=== PATIENT | female | born 1980 | race Caucasian/White ===

== ENCOUNTER 2022-07-27 07:56 | Day surgery (SDC) | payer BC, OTHER ==
[2022-07-26 17:03] LABS: Hematocrit 33.7 % (36.0-45.0); Lymphocytes % 36.8 % (15.3-44.8); MCV 82.2 fL (80-100); Specific Gravity 1.023 (1.005-1.030)
[2022-07-26 17:08] LABS: Potassium 3.3 mmol/L (3.5-5.1)
[2022-07-26 17:15] LABS: SARS-CoV-2 Antigen Rapid Res Negative (Negative)
[2022-07-27] MEDS ORDERED: FENTANYL CITR 100 MCG/2 ML ONE (08:06)
[2022-07-27] MEDS ORDERED: Ringers Lactate 1,000 ML IV ONE ×2 (08:06→10:41)
[2022-07-27] MEDS ORDERED: propofoL 200 MG/20 ML VIAL IV ONE (08:06)
[2022-07-27] MEDS ORDERED: ONDANSETRON 4 MG/2 ML VIAL ONE ×2 (08:06→10:44)
[2022-07-27] MEDS ORDERED: CEFAZOLIN 2 GM IN 0.9% NACL 2 GM/100 ML BAG ONE (08:06)
[2022-07-27] MEDS ORDERED: LIDOCAINE 2% MPF 5 ML VIAL ONE (08:06)
[2022-07-27] MEDS ORDERED: MIDAZOLAM HCL 2 MG/2 ML INJ ONE ×2 (08:06→08:48)
[2022-07-27] MEDS ORDERED: BUPIVACAINE 0.25% PF 30 ML VIAL ONE (08:15)
[2022-07-27] MEDS ORDERED: SCOPOLAMINE HYDROBROMIDE PATCH TD ONE (08:51)
[2022-07-27] MEDS ORDERED: ROCURONIUM 50 MG/5 ML VIAL IV ONE (09:15)
[2022-07-27] MEDS ORDERED: KETOROLAC 30 MG/ML INJ ONE (10:11)
[2022-07-27] MEDS ORDERED: SODIUM HYPOCHLORITE 0.25% 473 ML ONE (10:11)
[2022-07-27] MEDS ORDERED: NEOSTIGMINE 1 MG/ML -10 ML VIAL ONE (10:27)
[2022-07-27] MEDS ORDERED: GLYCOPYRROLATE 0.2 MG/ML SYR ONE (10:27)
[2022-07-27] MEDS: MEPERIDINE HCL 25 MG/ML SYR ONE ×2 (10:45→11:00)
--- NOTE | 2022-07-27 11:02 | P.OP ---
Preoperative diagnosis: Post Operative Wound infection / seroma / hematoma Postoperative diagnosis: Post Operative Wound infection / seroma / hematoma Primary procedure: Debridment of Necrotic abdominal wall fat Secondary procedure: Incision and Drainage of Abdominal seroma / hematoma Anesthesia: GETA + Local Estimated blood loss: <20cc Specimen: cultures, debridement tissue Findings: necrotic fat ~ 25cm x 14cm, from pubis to epigastric area Complications: None Drain(s): Other ([place] ) Transferred to: Recovery Room Condition: Good
[2022-07-27] MEDS: HYDROMORPHONE HCL 1 MG/ML INJ ONE ×2 (11:10→11:15)
[2022-07-27 13:24] VITALS: BP 109/76; TEMP 96.5; O2SAT 99
--- NOTE | 2022-07-27 22:12 | OP ---
Date of Procedure: 07/27/2022 Surgeon: Josh Ignacio MD, Preoperative Diagnosis: Postoperative wound infection/seroma/hematoma. Postoperative Diagnosis: Postoperative wound infection/seroma/hematoma. Procedures Performed: 1.Debridement of necrotic abdominal fat/adipose tissue. 2.Incision and drainage of abdominal seroma and hematoma. Anesthesia: General endotracheal plus local. Estimated Blood Loss: 20 cc. Specimen: Culture sent for both aerobic and anaerobic speciation and debridement tissue. Findings: Necrotic fat approximately 25 cm x 40 cm from pubic extending to epigastric area. Complications: None. Implants/drains: One 0.25-inch Lakia drain placed in the epigastric position. Disposition: Patient was transferred to recovery room in good condition. Procedure In Detail: After informed consent was obtained, patient was brought to the operating room, prepped and draped in the usual fashion. After adequate anesthesia was achieved, suprapubic area al dilia the previous abdominoplasty incision had a small opening, which is draining fluid at this point. A curvilinear incision was made around this following the previous incision down to subcutaneous tis sues. I digitized the area and immediately encountered a large hematoma/seroma. This was cultured f or both aerobic and speciation at this time. It was drained in its entirety. Approximately 700 cc o f murky fluid was removed consistent with a seroma/hematoma. At this point, I digitized the entire a rosa. There was a significant plane separation between the abdominal wall adipose tissue and the ante rior rectus sheath, which was intact. The inferior epigastric blood vessels appeared to be thrombose d on the patient's right side running along the anterior bowel wall. At this point, I used a pulse l avage device to irrigate out all these tissues briefly. At this point, I could see that there was ob vious devascularized fat on the anterior abdominal wall. At this point, using a combination of elect rocautery and sharp dissection, I removed and debrided all ischemic appearing fat until good bright a dipose tissue, which appeared well perfused was encountered. At this point, this adipose tissue was sent off for pathologic examination. I then pulse lavaged with additional 2.5 L clearing out the ent griffin area. Good hemostasis was achieved easily with minimal electrocautery at this point. I then mad e a stab incision in the epigastric area past the 0.25-inch Lakia drain through the epigastric cavi ty through an additional stab incision also on the other side of the epigastric region. Therefore, t he [place] passed from left to right in the area of the rectus muscle, but above the rectus muscle an d outside of the abdominal wall in the subcutaneous plane to allow for drainage. This was secured on both sides with a 3-0 nylon suture. I then copiously irrigated once again the abdominal wall. No a dditional hemostatic measures required. I then packed the wound with Kerlix soaked in 0.25% [place] so lution damp to dry. 2 Kerlix rolls were used at this point and a sterile dressing placed over top. Patient tolerated the procedure without evidence of any complication and was transferred back in good condition. All counts were correct at the end of the case. AGUSTINA/MARQUES Voice ID: [id number] Report ID: [id number]
--- NOTE | 2022-07-29 07:49 | EKG ---
Test Date: 2022-07-26 Test Time: 16:26:44 [employer] Help: VIVEK MEASUREMENT RESULTS: Intervals: Rate: 80 NV: 124 QRSD: 84 QT: 428 QTc: 493 [place]: P: 49 NV: 124 QRS: 40 T: 43 INTERPRETIVE STATEMENTS: Normal sinus rhythm Prolonged QT Abnormal ECG Compared to ECG 12/08/2008 08:26:36 Prolonged QT interval now present Electronically Signed On 07-29-22 07:44:48 CDT by Rafita Stevens
== END 2022-07-27 12:42 | disposition home or self-care (01) ==
LOC: OR 07:56
PROVIDERS: ATTEND Surgery
PROC: 0JB80ZZ Excision of Abdomen Subcutaneous Tissue and Fascia, Open Approach (ICD-10-PCS; principal; 2022-07-27 09:15)
DX: T81.42XA Infection following a procedure, deep incisional surgical site, initial encounter (principal); L08.89 Other specified local infections of the skin and subcutaneous tissue; S31.109A Unspecified open wound of abdominal wall, unspecified quadrant without penetration into peritoneal cavity, initial encounter; I96 Gangrene, not elsewhere classified; Z20.822 Contact with and (suspected) exposure to COVID-19
CPT/HCPCS: 11042; 11045; 93005; 87070; 85025; 80048; 36415; 87205; 81025; 88304; 87075; 87811; J2704; J2710; J2001; J2250; J3010; J2175; J1170; J0690; J7120 ×2; J2405 ×2